=== PATIENT | male | born 1945 | race Two or more races ===

== ENCOUNTER 2018-04-27 06:15 | Day surgery (SDC) | payer OTHER ==
[2018-04-27] MEDS ORDERED: PERCOCET 5-3251 EACH PO (10:52)
[2018-04-27] MEDS ORDERED: RECTICARE30 GM TOP (10:53)
== END 2018-04-27 15:05 | disposition home or self-care (01) ==
LOC: CIR.AMB 06:15
DX: C20 Malignant neoplasm of rectum (principal)

== ENCOUNTER → 2018-06-26 | Day surgery (SDC) | payer OTHER ==
[~2018-06-26] MED LIST: ALTACE2.5 MG; ASPIR 8181 MG; ATORVASTATIN CA20 MG; CARVEDILOL6.25 MG; KETO10TA2 PO; PERCOCET 5-3251 EACH PO; RECTICARE30 GM TOP
== END | disposition home or self-care (01) ==
LOC: ADM 06-23 12:00 → CIR.AMB 05:56
DX: C20 Malignant neoplasm of rectum (principal)
CPT/HCPCS: 36561; C1751

== ENCOUNTER 2019-12-11 06:05 | Day surgery (SDC) | payer OTHER | END 2019-12-11 09:28 | disposition home or self-care (01) | LOC: AMB-ENDOS 06:05 | PROVIDERS: ATTEND Surgery | DX: D12.8 Benign neoplasm of rectum (principal); Z20.828 Contact with and (suspected) exposure to other viral communicable diseases ==

== ENCOUNTER 2021-02-02 09:15 | Inpatient (IN) | payer OTHER ==
[~2021-02-02] VITALS: Ht 167.6 cm; Wt 65.8 kg
[2021-02-09] MEDS ORDERED: HYOSCYAMINE0.125 M1 SL (12:29)
[2021-02-09] MEDS ORDERED: OXYC1TAB9 PO (12:30)
[2021-02-09] MEDS ORDERED: INTESTINEX680 M1 PO (12:31)
== END 2021-02-09 15:10 | disposition home or self-care (01) | DRG 331 ==
LOC: ADM 09:15 → EDSTATUS 09:15 → SURH 02-05 07:37 → O/R 02-05 07:37 → SURH 02-05 09:15
PROVIDERS: ADMIT Surgery; ATTEND Surgery
PROC: 0DTP4ZZ Resection of Rectum, Percutaneous Endoscopic Approach (ICD-10-PCS; 2021-02-05)
PROC: 0DTN4ZZ Resection of Sigmoid Colon, Percutaneous Endoscopic Approach (ICD-10-PCS; 2021-02-05)
PROC: 0DTQ4ZZ Resection of Anus, Percutaneous Endoscopic Approach (ICD-10-PCS; 2021-02-05)
PROC: 07BB4ZZ Excision of Mesenteric Lymphatic, Percutaneous Endoscopic Approach (ICD-10-PCS; 2021-02-05)
PROC: 0D1M4Z4 Bypass Descending Colon to Cutaneous, Percutaneous Endoscopic Approach (ICD-10-PCS; principal; 2021-02-05 12:15)
PROC: 4A12X4Z Monitoring of Cardiac Electrical Activity, External Approach (ICD-10-PCS; 2021-02-07)
DX: C20 Malignant neoplasm of rectum (principal); I11.9 Hypertensive heart disease without heart failure; I25.10 Atherosclerotic heart disease of native coronary artery without angina pectoris; K57.30 Diverticulosis of large intestine without perforation or abscess without bleeding; R19.4 Change in bowel habit; R19.5 Other fecal abnormalities

== ENCOUNTER 2021-05-31 06:54 | Inpatient (IN) | payer OTHER ==
[~2021-05-31] VITALS: Ht 165.1 cm; Wt 59.0 kg
[~2021-05-31 06:54] MED LIST changes: +HYOSCYAMINE0.125 M1 SL; +INTESTINEX680 M1 PO; +OXYC1TAB9 PO
--- NOTE | 2021-05-31 07:14 | NUR ---
SE RECIBE PTE ALERTA Y ORIENTADO X3 REFIERE TENER DOLOR ABDOMINAL DESDE JOSE EDUARDO ES REFERIDO DEL [facility] ,EL PTE TIENE JACKIE COLOSTOMIA FUE OPERADO EN [facility] JARED REFIERE,DANIEL DR.JOSE SHIELDS.
--- NOTE | 2021-05-31 08:03 | NUR ---
SE ORIENTA SOBRE TRATAMIENTO A SEGUIR, EL CUAL REFIERE ENTENDER. SE COLECTAN MUESTRAS UTILIZANDO MEDIDAS ASEPTICAS. PTE LLEGA CANALIZADO CON ANGIO #18 PATENTE. SE OBSERVA AREA DE VENOPUNCION KUNAL DE EDEMA Y ERITEMA. SE ADMINISTRAN MEDICAMENTOS JARED ORDEN MEDICA.
--- NOTE | 2021-05-31 15:00 | NUR ---
SE RECIBE PTE ALERTA Y ORIENTADO X 3 ESFERAS EN CAMA CON BARANDAS ELEVADAS POR SEGURIDAD EN COMPANIA DE FAMILIAR. PRESENTANDO BUEN PATRON RESPIRATORIO. RECIBIENDO IV'S 0.9NSS BAJANDO A 80ML/HR AREA DE VENOPUNCION KUNAL DE EDEMA Y ERITEMA. NGT EN FOSA NASAL DERECHA CONECTADO A SUCCION INTERMITENTE BAJA CON RESIDUAL GASTRICO DE 100ML COLOR WILBER. SE MANTIENE EN OBSERVACION POR CAMBIOS EN CONDICION MEDICA. PENDIENTE CONSULTA CON .
[2021-06-14] MEDS ORDERED: ULTRAM50 MG PO (11:21)
== END 2021-06-14 12:16 | disposition home or self-care (01) | DRG 330 ==
LOC: ER 06:54 → SURH 15:39 → O/R 06-05 15:30 → SURH 06-05 15:32
PROVIDERS: ADMIT Surgery; ATTEND Surgery
PROC: 0DBW4ZX Excision of Peritoneum, Percutaneous Endoscopic Approach, Diagnostic (ICD-10-PCS; 2021-06-08)
PROC: 0D1 Gastrointestinal System, Bypass (ICD-10-PCS; principal; 2021-06-08 18:15)
DX: C20 Malignant neoplasm of rectum (principal); C78.6 Secondary malignant neoplasm of retroperitoneum and peritoneum; K56.690 Other partial intestinal obstruction; I25.810 Atherosclerosis of coronary artery bypass graft(s) without angina pectoris; I10 Essential (primary) hypertension; E78.49 Other hyperlipidemia; Z20.822 Contact with and (suspected) exposure to COVID-19; Z95.1 Presence of aortocoronary bypass graft

== ENCOUNTER 2021-08-06 21:24 | Emergency (ER) | payer OTHER ==
[~2021-08-06] VITALS: Ht 167.6 cm; Wt 50.3 kg
[~2021-08-06 21:24] MED LIST changes: +ULTRAM50 MG PO
[2021-08-06] MEDS ORDERED: ZOFRAN8 MG PO (21:42)
[2021-08-06] MEDS ORDERED: PERCOCET 10-321 EACH PO (21:42)
== END 2021-08-07 11:57 | disposition home or self-care (01) ==
LOC: ER 21:24
DX: J34.89 Other specified disorders of nose and nasal sinuses (principal); F41.9 Anxiety disorder, unspecified